=== PATIENT | female | born 1945 | race Caucasian/White ===

== ENCOUNTER → 2020-02-20 | Outpatient (CLI) | payer MEDICARE ==
[~2020-02-20] MED LIST: ASPI-630 PO; CHOL400C PO; MULT-658 PO; UBID200C7 PO
--- NOTE | 2020-02-29 17:23 | RAD ---
EXAM: BILATERAL DIGITAL 3D SCREENING MAMMOGRAPHY. HISTORY: Routine mammographic screening. TECHNIQUE: Bilateral digital 3D and tomographic images were obtained in CC and MLO projections. Computer-aided detection was applied. COMPARISON: 02/08/2019. COMPOSITION: B. There are scattered areas of fibroglandular density. FINDINGS: There are no suspicious masses, microcalcifications or architectural distortion. The parenchymal pattern is stable. An asymmetric parenchymal island is superolaterally on the left is stable. BI-RADS CATEGORY 2: Benign. RECOMMENDATION: 1. Routine screening mammography in one year. If mammography demonstrates dense breast tissue (heterogenously dense or extremely dense, category C or D), which could hide abnormalities, and if other risk factors for breast cancer have been identified, supplemental screening tests that may be suggested by the ordering physician may be of benefit. Dense breast tissue, in and of itself, is a relatively common condition. Therefore, this information is not provided to cause undue concern, but rather to raise awareness and to promote discussion with the referring physician regarding the presence of other risk factors, in addition to dense breast tissue. The results of this mammography examination is provided to the patient and referring physician. The patient should contact their referring physician if any questions or concerns exist regarding this report. PQRS compliance statement - Patient information was entered into a reminder system with a target due date for the next mammogram. "Our facility is accredited by the [employer]." Electronically signed by: Kathryn Jimenez MD (02/29/2020 5:20 PM) [id number]
== END ==
LOC: MAMMO 10:17
PROVIDERS: ATTEND Family Medicine
DX: Z12.31 Encounter for screening mammogram for malignant neoplasm of breast (principal)
CPT/HCPCS: 77063; 77067

== ENCOUNTER → 2020-02-20 | Outpatient (CLI) | payer MEDICARE | LOC: LAB 09:51 | PROVIDERS: ATTEND Nurse Anesthetist, Certified Registered | DX: Z01.818 Encounter for other preprocedural examination (principal); Z11.59 Encounter for screening for other viral diseases; Z86.010 Personal history of colon polyps | CPT/HCPCS: 36415; U0003 ==

== ENCOUNTER → 2020-02-23 | Day surgery (SDC) | payer MEDICARE ==
[~2020-02-23] MED LIST changes: +IPRATRPIUM/ALBUTEROL 0.5/2.5MG 3 ML NEBU. NEB PRN; +IV RINGERS SOLUTION,LACTATED 1,000 ML IV SCH; +MIDAZOLAM HCL PF 2 MG/2 ML VIAL. IV ONE; +ONDANSETRON PF 4 MG/2 ML VIAL. IV PRN; +PROPOFOL 10,000 MCG/ML (20ML) VIAL IV ONE
[2020-02-23 13:05] VITALS: BP 136/67
--- NOTE | 2020-02-27 17:07 | PATHOLOGY ---
[facility] Accession Number: [id number] . 01 Material submitted: . colon - TRANSVERSE COLON. Modifiers: transverse . 01 Clinical history: . None provided . 02 Diagnosis: Colon biopsies, transverse colon polyp: - Sessile serrated polyp/adenoma. (JPM:emilio; 02/27/2020) S 02/27/2020 1020 Local . 02 Comment: There is no high grade dysplasia or evidence of malignancy. (JPM:emilio; 02/27/2020) . 02 Electronically signed: . Landon Lamas MD, Pathologist NPI- [id number] . 01 Gross description: . The specimen is received in formalin, labeled "Mariah Burns, transverse polyp". Received are four segments of pale travis soft tissue ranging in size from 0.3 to 0.4 cm in maximum dimensions. The specimen is submitted entirely in cassette A1. ([facility]; 02/26/2020) QA/QA 02/26/2020 1643 Local . 02 Pathologist provided ICD-10: D12.3 . 02 CPT . 349268 Specimen Comment: A courtesy copy of this report has been sent to [phone], [phone] Specimen Comment: [id number] Specimen Comment: Report sent to / DR MARVIN Performed at: 01 [facility] [address], [place] [id number] MD Franco Millan MD Phone: [phone] Performed at: 02 [facility] [address] [place], [place] [id number] MD Landon Lamas MD Phone: [phone]
== END | disposition home or self-care (01) ==
LOC: SURG 09:54
PROVIDERS: ATTEND Internal Medicine Gastroenterology
DX: Z09 Encounter for follow-up examination after completed treatment for conditions other than malignant neoplasm (principal); D12.3 Benign neoplasm of transverse colon; K64.8 Other hemorrhoids; K57.30 Diverticulosis of large intestine without perforation or abscess without bleeding; I10 Essential (primary) hypertension; M19.90 Unspecified osteoarthritis, unspecified site; Z90.710 Acquired absence of both cervix and uterus; Z98.890 Other specified postprocedural states; Z86.010 Personal history of colon polyps; Z79.82 Long term (current) use of aspirin; Z79.899 Other long term (current) drug therapy
CPT/HCPCS: 45380; 45381; 88305; J2704; J7120

== ENCOUNTER → 2021-02-25 | Outpatient (CLI) | payer MEDICARE ==
[2020-02-23 13:05] VITALS: BP 136/67
[~2021-02-25] MED LIST changes: -IPRATRPIUM/ALBUTEROL 0.5/2.5MG 3 ML NEBU. NEB PRN; -IV RINGERS SOLUTION,LACTATED 1,000 ML IV SCH; -MIDAZOLAM HCL PF 2 MG/2 ML VIAL. IV ONE; -ONDANSETRON PF 4 MG/2 ML VIAL. IV PRN; -PROPOFOL 10,000 MCG/ML (20ML) VIAL IV ONE
--- NOTE | 2021-02-26 11:19 | RAD ---
DATE: 02/25/2021 EXAM: MAMMO ARNALDO SCREENING BILATERAL HISTORY: Screening COMPARISON: 02/20/2020, 02/08/2019, 06/16/2017, 04/24/2015 This study was interpreted with the benefit of Computerized Aided Detection (CAD). Breast Density: SCATTERED The breast parenchyma shows scattered fibroglandular densities. Breast parenchyma level B. FINDINGS: No mass, suspicious calcification, or architectural distortion in either breast. IMPRESSION: No evidence of malignancy. BI-RADS CATEGORY: 1 NEGATIVE RECOMMENDED FOLLOW-UP: 12M 12 MONTH FOLLOW-UP PQRS compliance statement: Patient information was entered into a reminder system with a target due date for the next mammogram. Mammography is a sensitive method for finding small breast cancers, but it does not detect them all and is not a substitute for careful clinical examination. A negative mammogram does not negate a clinically suspicious finding and should not result in delay in biopsying a clinically suspicious abnormality. "Our facility is accredited by the [employer]amm[employer]."
== END ==
LOC: MAMMO 08:59
PROVIDERS: ATTEND Family Medicine
DX: Z12.31 Encounter for screening mammogram for malignant neoplasm of breast (principal)
CPT/HCPCS: 77063; 77067